=== PATIENT | female | born 1960 | race Caucasian/White ===

== ENCOUNTER 2023-08-12 15:52 | Inpatient (IN) | payer OTHER ==
[~2023-08-12] VITALS: Ht 149.9 cm; Wt 59.9 kg
[2023-08-12 16:04] VITALS: BP 191/81; PULSE 69; RESP 18; TEMP 98; O2SAT 97
[2023-08-12 17:24] LABS: BASOPHILS % (AUTO) 0.4 % (0.0-2.0); EOSINOPHILS # (AUTO) 0.1 K/uL (0-0.4); EOSINOPHILS % (AUTO) 1.5 % (0.0-4.0); HEMATOCRIT 39.8 % (36-48); HEMOGLOBIN 13.4 g/dL (12.0-16.0); LYMPHOCYTES # (AUTO) 1.7 K/uL (2.5-16.5); LYMPHOCYTES % (AUTO) 24.4 % (20.5-51.1); MEAN CORPUSCULAR HEMOGLOBIN 31 pg (27-31); MEAN CORPUSCULAR HGB CONC 34 g/dL (33-37); MEAN CORPUSCULAR VOLUME 92.5 fL (80-94); MONOCYTES # (AUTO) 0.5 K/uL (0.8-1.0); MONOCYTES % (AUTO) 7.7 % (1.7-9.3); NEUTROPHILS # (AUTO) 4.7 K/uL (1.8-7.7); PLATELET COUNT (AUTO) 266 K/uL (140-450); RED BLOOD CELL COUNT(AUTO) 4.31 MIL/uL (4.20-5.40); WHITE BLOOD COUNT (AUTO) 7.2 K/uL (4.8-10.8)
[2023-08-12] MEDS: PROCHLORPERAZINE 10 MG/2 ML VIAL IVP ONE (17:25)
[2023-08-12] MEDS: ACETAMINOPHEN 325 MG TAB PO ONE (17:25)
[2023-08-12] MEDS: diphenhydrAMINE 50 MG/ML VIAL IVP ONE (17:26)
[2023-08-12] MEDS: NACL 0.9% 1,000 ML IV ONE (17:27)
[2023-08-12 17:39] LABS: ANION GAP 12.7 (8-16); CALCIUM 9.5 mg/dL (8.5-10.1); CARBON DIOXIDE 28.7 mmol/L (21-32); CREATININE 0.7 mg/dL (0.6-1.3); INR 0.99 (0.8-1.2); PARTIAL THROMBOPLASTIN TIME 26.5 secs (22-35.6); POTASSIUM 3.4 mmol/L (3.5-5.1); PROTHROMBIN TIME 10.4 secs (10.8-13.4)
[2023-08-12 17:55] LABS: ALANINE AMINOTRANSFERASE 40 U/L (12-78); ALBUMIN 4.2 g/dL (3.4-5.0); ALKALINE PHOSPHATASE 104 U/L (50-136); ASPARTATE AMINOTRANSFERASE 22 U/L (15-37); FREE T4 (FREE THYROXINE) 0.92 ng/dL (0.76-1.46); THYROID STIMULATING HORMONE 1.84 uIU/mL (0.34-3.74); TOTAL BILIRUBIN 0.2 mg/dL (0.0-1.0); TOTAL PROTEIN, SERUM 8.1 g/dL (6.4-8.2)
[2023-08-12] MEDS: KETOROLAC 30 MG/ML VIAL IVP ONE (18:26)
[2023-08-12 18:56] LABS: APPEARANCE,URINE CLEAR (CLEAR); BILIRUBIN,URINE NEGATIVE (NEGATIVE); BLOOD, URINE NEGATIVE (NEGATIVE); COLOR,URINE YELLOW (YELLOW); LEUKOCYTE ESTERASE ,URINE NEGATIVE (NEGATIVE); NITRITE, URINE NEGATIVE (NEGATIVE); PH,URINE 6.5 (5.0-9.0); PROTEIN,URINE NEGATIVE (NEGATIVE); UGLUCOSE NEGATIVE (NEGATIVE); UROBILINOGEN,URINE 0.2 EU/dL (0.2 - 1)
[2023-08-12] MEDS ORDERED: ONDANSETRON 4 MG/2 ML VIAL IVP PRN (19:20)
[2023-08-12] MEDS ORDERED: HYDROcodone/APAP 5/325 MG 1 TAB TAB PO PRN (19:20)
[2023-08-12] MEDS ORDERED: ZOLPIDEM 5 MG TAB PO PRN (19:20)
[2023-08-12] MEDS ORDERED: ACETAMINOPHEN 325 MG TAB PO PRN (19:20)
[2023-08-12] MEDS ORDERED: LORazepam 1 MG TAB PO PRN (19:20)
[2023-08-12 20:05] LABS: CHOL/HDL RATIO 2.7 (1-4.5); MAGNESIUM 2.3 mg/dL (1.8-2.4); PHOSPHORUS 3.6 mg/dL (2.5-4.9); THYROID STIMULATING HORMONE 1.91 uIU/mL (0.34-3.74)
[2023-08-12] MEDS ORDERED: BENA20TA88 PO (20:31)
[2023-08-12 22:10] VITALS: BP 149/69; PULSE 64; RESP 17; TEMP 97.4; O2SAT 100; O2SAT 95
[2023-08-12 22:14] VITALS: PULSE 70
[2023-08-13] VITALS (7 sets, daily range): BP systolic 138–153; BP diastolic 61–86; PULSE 60–73; RESP 15–19; TEMP 96.7–98; O2SAT 95–98
[2023-08-13] MEDS: BENAZEPRIL 20 MG TAB PO SCH (02:36)
[2023-08-13] MEDS: ATORVASTATIN 20 MG TAB PO SCH (08:38)
[2023-08-13] MEDS: ASPIRIN 81 MG TAB.CHEW PO SCH (08:38)
[2023-08-13] MEDS: DOCUSATE SODIUM 100 MG GELCAP PO SCH (08:38)
[2023-08-13] MEDS ORDERED: ASPI-1822 PO (17:22)
[2023-08-13 17:35] LABS: BASOPHILS % (AUTO) 0.6 % (0.0-2.0); EOSINOPHILS # (AUTO) 0.1 K/uL (0-0.4); EOSINOPHILS % (AUTO) 2.4 % (0.0-4.0); HEMATOCRIT 36.9 % (36-48); HEMOGLOBIN 12.8 g/dL (12.0-16.0); LYMPHOCYTES # (AUTO) 2.1 K/uL (2.5-16.5); LYMPHOCYTES % (AUTO) 39.6 % (20.5-51.1); MEAN CORPUSCULAR HEMOGLOBIN 32 pg (27-31); MEAN CORPUSCULAR HGB CONC 35 g/dL (33-37); MEAN CORPUSCULAR VOLUME 91.2 fL (80-94); MONOCYTES # (AUTO) 0.5 K/uL (0.8-1.0); MONOCYTES % (AUTO) 9.8 % (1.7-9.3); NEUTROPHILS # (AUTO) 2.5 K/uL (1.8-7.7); NEUTROPHILS % (AUTO) 47.6 % (42.2-75.2); PLATELET COUNT (AUTO) 251 K/uL (140-450); RED BLOOD CELL COUNT(AUTO) 4.04 MIL/uL (4.20-5.40); RED CELL DISTRIBUTION WIDTH 13.6 % (11.6-13.7); WHITE BLOOD COUNT (AUTO) 5.3 K/uL (4.8-10.8)
[2023-08-13 17:49] LABS: CALCIUM 8.9 mg/dL (8.5-10.1); CARBON DIOXIDE 28.6 mmol/L (21-32); CREATININE 0.6 mg/dL (0.6-1.3); POTASSIUM 3.6 mmol/L (3.5-5.1)
[2023-08-13 19:13] LABS: HEMOGLOBIN A1C 6.5 % (4.8-5.6)
[2023-08-13] MEDS ORDERED: BENAZEPRIL 20 MG TAB PO SCH (21:00)
[2023-08-13] MEDS ORDERED: MEDS-TO-BEDS MC SCH (21:00)
[2023-08-14] MEDS ORDERED: POTASSIUM CHLORIDE 10 MEQ TABER PO SCH (09:00)
[2023-08-14] MEDS ORDERED: amLODIPine 5 MG TAB PO SCH (09:00)
== END 2023-08-13 18:45 | disposition home or self-care (01) | DRG 52 ==
LOC: MED 15:52 → MTU 19:23
PROVIDERS: ADMIT Hospitalist; ATTEND Hospitalist
DX: I67.4 Hypertensive encephalopathy (principal); G45.9 Transient cerebral ischemic attack, unspecified; G43.809 Other migraine, not intractable, without status migrainosus; I10 Essential (primary) hypertension; E11.9 Type 2 diabetes mellitus without complications; Z79.899 Other long term (current) drug therapy; H11.31 Conjunctival hemorrhage, right eye
CPT/HCPCS: 36415; 70450; 71045; 71046; 80048; 80076; 81003; 83036; 83735; 84100; 84436; 84439; 84443; 84479; 84484; 85025; 85610; 85651; 85730; 86886; 86900; 86901; 87081; 87086; 92526; 93005; 96361; 96374; 96375; 97116; 97163-GP; 99291; J0780; J1200; J1885; Q9967